=== PATIENT | male | born 1965 | race Caucasian/White ===

== ENCOUNTER 2020-04-16 13:14 | Inpatient (IN) | payer OTHER ==
[~2020-04-16] VITALS: Ht 175.3 cm; Wt 80.6 kg
[2020-04-16] VITALS (157 sets, daily range): BP systolic 117–150; BP diastolic 78–114; PULSE 60–88; TEMP 97.8–98.7; O2SAT 93–98
--- NOTE | 2020-04-16 13:48 | NUR ---
Report received from DWAIN Simon at [facility] at this time.
--- NOTE | 2020-04-16 14:45 | NUR ---
Patient admitted to room IMCU15 via EMS stretcher with no complications. Patient connected to bedside monitor, vital signs stable, full assessment completed. Bed in lowest position, side rails up x2, call light and personal items within reach. Patient has no complaints or concerns at this time except for chest "discomfort" 3/10 with some bilateral forearm pain.
--- NOTE | 2020-04-16 14:57 | NUR ---
Dr. Silverman at the bedside to assess patient.
[2020-04-16 15:21] LABS: HEMATOCRIT 43.1 % (42.0-52.0); HEMOGLOBIN 15.4 g/dl (13.5-18.0); MEAN CELL VOLUME 91 fl (80.0-100.0); MEAN CORPUSCULAR HEMOGLOBIN 33 pg (27.0-31.0); MEAN CORPUSCULAR HGB CONC 36 g/dl (33.0-37.0); MEAN PLATELET VOLUME 11.4 fl (7.4-10.4); PLATELET COUNT 173 K/mm3 (130-400); RED BLOOD COUNT 4.72 M/mm3 (4.20-5.60); REDCELL DISTRIBUTION WIDTH-CV 12.1 % (11.5-14.5)
[2020-04-16] MEDS ORDERED: ZOCOR 20MG20 MG PO (15:23)
[2020-04-16 15:27] LABS: PROTHROMBIN TIME 11.6 SECONDS (9.7-12.8)
[2020-04-16 15:49] LABS: PARTIAL THROMBOPLASTIN TIME 114.8 SECONDS (26.0-37.0)
--- NOTE | 2020-04-16 16:14 | NUR ---
SEE MOUSTAPHA FOR ALL MEDICATION ADMINISTRATIONS AND INTRA AND POST SEDATION ASSESSMENT
--- NOTE | 2020-04-16 17:15 | NUR ---
Patient transferred back to [facility] from clinical laboratory technician by clinical laboratory technician RN with no complications, connected to bedside monitor, vital signs stable, right radial site has no drainage and is soft with no hematoma. Patient has no complaints or concerns at this time. Call light and personal items within reach. Bed in lowest position, side rails up x2.
--- NOTE | 2020-04-16 19:00 | NUR ---
Bedside shift report given to MADDIE Hyatt and care handed over at this time.
--- NOTE | 2020-04-16 20:10 | NUR ---
PATIENT FOREARM FIRM TO TOUCH. PATIENT COMPLAINS THAT ARM IS TIGHT AND SOME PLACES ARE SORE. AIR REMOVED FROM TR BAND DIRECTED. NO BLEEDING NOTED.
[2020-04-17] VITALS (8 sets, daily range): BP systolic 104–127; BP diastolic 81–85; PULSE 14–68; TEMP 97.9–98.1; O2SAT 94–95
[2020-04-17 06:07] LABS: BASO % 0.4 % (0.0-2.0); EOS # 0.1 (0.0-0.7); EOS % 1.5 % (0-4.0); GRAN # 5.1 (1.4-6.5); GRAN % 65.5 % (42.2-75.2); HEMATOCRIT 42.5 % (42.0-52.0); LYMPH # 1.8 (1.2-3.4); MEAN CELL VOLUME 93 fl (80.0-100.0); MEAN CORPUSCULAR HEMOGLOBIN 33 pg (27.0-31.0); MEAN CORPUSCULAR HGB CONC 35 g/dl (33.0-37.0); MEAN PLATELET VOLUME 11.3 fl (7.4-10.4); MONO # 0.7 (0.1-0.6); MONO % 9.3 % (1.7-9.3); PLATELET COUNT 170 K/mm3 (130-400); RED BLOOD COUNT 4.58 M/mm3 (4.20-5.60); REDCELL DISTRIBUTION WIDTH-CV 12.5 % (11.5-14.5)
[2020-04-17 06:20] LABS: ALBUMIN 3.8 gm/dL (3.5-5.0); BILIRUBIN,TOTAL 2.1 mg/dL (0.0-1.0); CALCIUM 8.9 mg/dL (8.4-10.2); CHOLESTEROL RISK RATIO 5.6; CREATININE, serum 1.14 (0.66-1.25); POTASSIUM 3.8 mmol/L (3.4-5.0)
[2020-04-17] MEDS ORDERED: BRILINTA90 MG PO (10:39)
[2020-04-17] MEDS ORDERED: ASPIRIN E.C. 8181 MG PO (10:40)
[2020-04-17] MEDS ORDERED: LIPITOR 40MG TA40 MG PO (10:40)
--- NOTE | 2020-04-17 12:22 | NUR ---
First visit from the paper counter. No needs right now.
--- NOTE | 2020-04-17 15:54 | NUR ---
The patient discharged before an intake could be completed.
== END 2020-04-17 11:00 | disposition home or self-care (01) | DRG 247 ==
LOC: IMCU 13:14
PROVIDERS: Internal Medicine Cardiovascular Disease; Physician Assistant; ADMIT Student in an Organized Health Care Education/Training Program
PROC: 027034Z Dilation of Coronary Artery, One Artery with Drug-eluting Intraluminal Device, Percutaneous Approach (ICD-10-PCS; principal; 2020-04-16)
PROC: 4A023N7 Measurement of Cardiac Sampling and Pressure, Left Heart, Percutaneous Approach (ICD-10-PCS; 2020-04-16)
PROC: B2101ZZ Fluoroscopy of Single Coronary Artery using Low Osmolar Contrast (ICD-10-PCS; 2020-04-16)
DX: I21.4 Non-ST elevation (NSTEMI) myocardial infarction (principal); I10 Essential (primary) hypertension; E78.5 Hyperlipidemia, unspecified; Z87.891 Personal history of nicotine dependence
CPT/HCPCS: 99222-AI; 99238; C1725; C1769; C1874; C1887; C9600; J1644; J1650; J2250; J3010